=== PATIENT | female | born 1945 | race African-American/Black ===

== ENCOUNTER 2021-08-10 10:22 | Inpatient (IN) ==
[2021-08-10] MEDS ORDERED: methylPREDNISolone SOD SUC 125 MG/2 ML VIAL IV STA (10:37)
[2021-08-10] MEDS ORDERED: ALBUTEROL/IPRATROPIUM 3 ML NEB RESP TX STA (10:37)
[2021-08-10 11:06] LABS: Basophils # 0.1 10*3/uL (0.0-0.2); Basophils % 0.5 % (0.0-0.8); Eosinophils # 0.3 10*3/uL (0.0-0.87); Eosinophils % 1.8 % (0.00-10.9); Hematocrit 39.3 VOL% (35.7-47.0); Hemoglobin 12.3 GM/DL (12.0-16.0); Immature Granulocytes % 1.2 %; Immature Granulocytes Absolute 0.17 #; Lymphocytes # 0.7 10*3/uL (1.4-4.0); Lymphocytes % 4.7 % (21.3-54.2); Mean Corpuscular HGB Conc 31.3 GM/DL (32-36); Mean Corpuscular Volume 73.3 FL (87-102); Mean Platelet Volume 9.6 FL (9.6-12.0); NRBC # 0.02 10*3/uL; Neutrophils % 82.8 % (38.7-73.9); Platelet Count 302 T/CUMM (130-400); Red Blood Count 5.36 MC/CUMM (3.8-5.5); Red Cell Distribution Width 16.4 % (9.3-17.3); White Blood Count 14.5 T/CUMM (4-12)
[2021-08-10] MEDS ORDERED: VANCOMYCIN INJ 1,000 MG in SODIUM CHLORIDE 0.9% 250 ML IV STA (11:19)
[2021-08-10] MEDS ORDERED: CEFEPIME 1,000 MG in SODIUM CHLORIDE 0.9% 100 ML IV STA (11:19)
[2021-08-10 11:21] LABS: Albumin 2.1 G/DL (3.4-5.0); Bilirubin,Total 0.7 MG/DL (0.20-1.00); Calcium 12.5 MG/DL (8.5-10.1); Osmolality,Calculated 278.4 MOS/KG (273-304); Potassium 4.2 MMOL/L (3.5-5.1)
[2021-08-10] MEDS ORDERED: ONDANSETRON 4 MG/2 ML VIAL ONE (11:30)
[2021-08-10] MEDS ORDERED: ONDANSETRON 4 MG/2 ML VIAL IV STA (11:31)
[2021-08-10 11:35] LABS: Polychromasia 1+
[2021-08-10 11:36] LABS: Platelet Estimate Normal; Target Cells 1+
[2021-08-10] MEDS ORDERED: ALBUTEROL 2.5 MG/3 ML NEB RESP TX STA (11:37)
[2021-08-10 13:08] LABS: ABG Base Excess 7.8 MMOL/L (-2.5-2.5); ABG HCO3 31.5 MMOL/L (20-26); ABG Oxygen Saturation 91.8 % (95-100); ABG PCO2 47.8 MM HG (35-48); ABG PH 7.449 (7.35-7.45); ABG PO2 64.4 MM HG (80-95); ABG TCO2 29.4 MMOL/L (23-27)
[2021-08-10] MEDS ORDERED: ONDANSETRON 4 MG/2 ML VIAL IV PRN (13:14)
[2021-08-10] MEDS ORDERED: ACETAMINOPHEN 325 MG TABLET PO PRN (13:14)
[2021-08-10] MEDS: ALBUTEROL/IPRATROPIUM 3 ML NEB RESP TX SCH ×3 (14:55→23:36)
[2021-08-10] MEDS: CEFEPIME 1,000 MG in SODIUM CHLORIDE 0.9% 100 ML IV SCH ×2 (15:10→20:59)
[2021-08-10] MEDS: ENOXAPARIN 40 MG/0.4 ML SYRINGE SUBCUT SCH (15:30)
[2021-08-10 16:31] LABS: Bacteria,Urine Occasional /HPF (Few); Bilirubin,Urine Negative (Negative); Blood, Urine Negative (Negative); Glucose,Urine (UA) Negative (Negative); Ketones,Urine Negative (Negative); Mucus,Urine Occasional /LPF (Occasional); Nitrite,Urine Negative (Negative); Protein,Urine Negative; RBC,Urine 3 /HPF (0-4); Squamous Epithelial Cell,Urine Occasional /HPF (0-10); Urine Appearance CLEAR (Clear); Urine Color Yellow (Yellow); Urine Specific Gravity 1.013 (1.001-1.035); Urine Urobilinogen < 2.0 EU/DL (<2.0)
[2021-08-10] MEDS: SODIUM CHLORIDE 0.45% 1,000 ML IV SCH (16:55)
[2021-08-10] MEDS: DOCUSATE SODIUM 100 MG CAPSULE PO SCH (20:58)
[2021-08-10] MEDS ORDERED: DIGOXIN 0.25 MG TABLET PO SCH (23:30)
[2021-08-11] MEDS: VANCOMYCIN INJ 1,000 MG in SODIUM CHLORIDE 0.9% 250 ML IV SCH ×3 (01:05→23:04)
[2021-08-11] MEDS: CEFEPIME 1,000 MG in SODIUM CHLORIDE 0.9% 100 ML IV SCH ×4 (03:02→21:07)
[2021-08-11] MEDS: ALBUTEROL/IPRATROPIUM 3 ML NEB RESP TX SCH ×6 (03:38→22:57)
[2021-08-11 05:58] LABS: Basophils % 0.1 % (0.0-0.8); Hematocrit 34.7 VOL% (35.7-47.0); Hemoglobin 10.7 GM/DL (12.0-16.0); Immature Granulocytes % 1.4 %; Immature Granulocytes Absolute 0.17 #; Lymphocytes # 0.4 10*3/uL (1.4-4.0); Lymphocytes % 3.2 % (21.3-54.2); Mean Corpuscular HGB Conc 30.8 GM/DL (32-36); Mean Corpuscular Volume 74.3 FL (87-102); Mean Platelet Volume 9.7 FL (9.6-12.0); Monocytes % 6.5 % (1.7-12.7); Neutrophils % 88.8 % (38.7-73.9); Platelet Count 290 T/CUMM (130-400); Red Blood Count 4.67 MC/CUMM (3.8-5.5); Red Cell Distribution Width 16.1 % (9.3-17.3); White Blood Count 12.3 T/CUMM (4-12)
[2021-08-11 06:14] LABS: Calcium 11.7 MG/DL (8.5-10.1); Osmolality,Calculated 276.7 MOS/KG (273-304); Potassium 4.2 MMOL/L (3.5-5.1)
[2021-08-11 07:45] LABS: Eosinophils 1 % (0-10); Lymphocytes 5 % (20-55); Promyelocytes 1 %; Segmented Neutrophils 85 % (50-85); Total Cells Counted 100
[2021-08-11 07:46] LABS: Platelet Estimate Normal
[2021-08-11] MEDS ORDERED: FUROSEMIDE 40 MG/4 ML VIAL IV ONE (10:18)
[2021-08-11] MEDS: DOCUSATE SODIUM 100 MG CAPSULE PO SCH ×2 (10:47→21:08)
[2021-08-11] MEDS: ASPIRIN EC 81 MG TABLET PO SCH (10:48)
[2021-08-11] MEDS: METOPROLOL TARTRATE 25 MG TABLET PO SCH ×2 (10:48→21:09)
[2021-08-11] MEDS: amLODIPine 10 MG TABLET PO SCH ×2 (10:48→21:09)
[2021-08-11] MEDS: DIGOXIN 0.125 MG TABLET PO SCH (10:48)
[2021-08-11] MEDS: PANTOPRAZOLE 40 MG TABLET PO SCH (10:48)
[2021-08-11] MEDS: methylPREDNISolone SOD SUC 40 MG/1 ML VIAL IV SCH ×2 (10:50→21:08)
[2021-08-11] MEDS: SODIUM CHLORIDE 0.45% 1,000 ML IV SCH (12:16)
[2021-08-11] MEDS: ENOXAPARIN 40 MG/0.4 ML SYRINGE SUBCUT SCH (13:56)
[2021-08-12] MEDS: ALBUTEROL/IPRATROPIUM 3 ML NEB RESP TX SCH ×6 (02:46→23:55)
[2021-08-12] MEDS: SODIUM CHLORIDE 0.45% 1,000 ML IV SCH ×2 (03:02→05:41)
[2021-08-12] MEDS: CEFEPIME 1,000 MG in SODIUM CHLORIDE 0.9% 100 ML IV SCH ×4 (03:02→20:47)
[2021-08-12] MEDS: methylPREDNISolone SOD SUC 40 MG/1 ML VIAL IV SCH ×3 (05:08→20:53)
[2021-08-12 06:07] LABS: Basophils % 0.1 % (0.0-0.8); Hemoglobin 10.8 GM/DL (12.0-16.0); Immature Granulocytes % 1.2 %; Immature Granulocytes Absolute 0.14 #; Lymphocytes # 0.3 10*3/uL (1.4-4.0); Lymphocytes % 2.3 % (21.3-54.2); Mean Corpuscular HGB Conc 30.9 GM/DL (32-36); Mean Corpuscular Volume 74.5 FL (87-102); Mean Platelet Volume 9.8 FL (9.6-12.0); Monocytes % 3.3 % (1.7-12.7); Neutrophils % 93.1 % (38.7-73.9); Platelet Count 300 T/CUMM (130-400); Red Cell Distribution Width 15.9 % (9.3-17.3)
[2021-08-12 06:30] LABS: Hypochromia 1+; Lymphocytes 1 % (20-55); Microcytosis 1+; Platelet Estimate Adequate; Segmented Neutrophils 96 % (50-85); Total Cells Counted 100
[2021-08-12 06:36] LABS: Alanine Aminotransferase 64 U/L (13-56); Albumin 1.8 G/DL (3.4-5.0); Alkaline Phosphatase 83 U/L (45-117); Aspartate Amino Transferase 41 U/L (0-37); Bilirubin,Total < 0.39 MG/DL (0.20-1.00); Blood Urea Nitrogen 18 MG/DL (7-18); Calcium 11.4 MG/DL (8.5-10.1); Carbon Dioxide 28 MMOL/L (21-32); Glucose 116 MG/DL (74-106); Osmolality,Calculated 279.5 MOS/KG (273-304); Potassium 4.4 MMOL/L (3.5-5.1); Sodium 139 MMOL/L (136-145); Total Protein 6.6 G/DL (6.4-8.2)
[2021-08-12 06:41] LABS: Estimated Glom Filtration Rate 111 ML/MIN
[2021-08-12] MEDS: METOPROLOL TARTRATE 25 MG TABLET PO SCH ×2 (08:43→20:43)
[2021-08-12] MEDS: DOCUSATE SODIUM 100 MG CAPSULE PO SCH ×2 (08:43→20:43)
[2021-08-12] MEDS: PANTOPRAZOLE 40 MG TABLET PO SCH (08:43)
[2021-08-12] MEDS: ASPIRIN EC 81 MG TABLET PO SCH (08:43)
[2021-08-12] MEDS: amLODIPine 10 MG TABLET PO SCH ×2 (08:44→20:43)
[2021-08-12] MEDS: DIGOXIN 0.125 MG TABLET PO SCH (08:44)
[2021-08-12] MEDS ORDERED: MAGNESIUM HYDROXIDE SUSP 30 ML UDCUP PO ONE (09:48)
[2021-08-12] MEDS: ALTEPLASE 4 MG in SODIUM CHLORIDE 0.9% 80 ML IV SCH ×2 (13:15→13:54)
[2021-08-12] MEDS: ENOXAPARIN 40 MG/0.4 ML SYRINGE SUBCUT SCH (13:15)
[2021-08-12] MEDS ORDERED: PEMBROLIZUMAB 200 MG in SODIUM CHLORIDE 0.9% 50 ML IV ONE (14:00)
[2021-08-12] MEDS: VANCOMYCIN INJ 1,000 MG in SODIUM CHLORIDE 0.9% 250 ML IV SCH ×2 (15:40→23:30)
[2021-08-13] MEDS: CEFEPIME 1,000 MG in SODIUM CHLORIDE 0.9% 100 ML IV SCH ×4 (02:20→21:05)
[2021-08-13] MEDS: ALBUTEROL/IPRATROPIUM 3 ML NEB RESP TX SCH ×6 (03:43→23:58)
[2021-08-13 05:08] LABS: Basophils % 0.1 % (0.0-0.8); Hematocrit 35.8 VOL% (35.7-47.0); Hemoglobin 11.2 GM/DL (12.0-16.0); Immature Granulocytes % 0.7 %; Immature Granulocytes Absolute 0.09 #; Lymphocytes # 0.3 10*3/uL (1.4-4.0); Lymphocytes % 2.4 % (21.3-54.2); Mean Corpuscular HGB Conc 31.3 GM/DL (32-36); Mean Corpuscular Volume 74.1 FL (87-102); Mean Platelet Volume 10.1 FL (9.6-12.0); Monocytes % 5.2 % (1.7-12.7); Neutrophils % 91.6 % (38.7-73.9); Platelet Count 341 T/CUMM (130-400); Red Blood Count 4.83 MC/CUMM (3.8-5.5); Red Cell Distribution Width 16.2 % (9.3-17.3); White Blood Count 13.6 T/CUMM (4-12)
[2021-08-13 05:34] LABS: Hypochromia 1+; Lymphocytes 2 % (20-55); Microcytosis 1+; Platelet Estimate Adequate; Segmented Neutrophils 94 % (50-85); Total Cells Counted 100
[2021-08-13] MEDS: methylPREDNISolone SOD SUC 40 MG/1 ML VIAL IV SCH ×3 (05:50→21:10)
[2021-08-13] MEDS ORDERED: LACTULOSE 20 GM/30 ML UDCUP PO ONE (09:15)
[2021-08-13] MEDS: DOCUSATE SODIUM 100 MG CAPSULE PO SCH ×2 (09:35→21:05)
[2021-08-13] MEDS: METOPROLOL TARTRATE 25 MG TABLET PO SCH ×2 (09:35→21:05)
[2021-08-13] MEDS: amLODIPine 10 MG TABLET PO SCH ×2 (09:35→21:05)
[2021-08-13] MEDS: ASPIRIN EC 81 MG TABLET PO SCH (09:35)
[2021-08-13] MEDS: PANTOPRAZOLE 40 MG TABLET PO SCH (09:35)
[2021-08-13] MEDS: DIGOXIN 0.125 MG TABLET PO SCH (09:36)
[2021-08-13] MEDS: SODIUM CHLORIDE 0.45% 1,000 ML IV SCH (09:51)
[2021-08-13] MEDS ORDERED: MAGNESIUM HYDROXIDE SUSP 30 ML UDCUP PO PRN (09:52)
[2021-08-13] MEDS: ENOXAPARIN 40 MG/0.4 ML SYRINGE SUBCUT SCH (12:42)
[2021-08-13] MEDS: VANCOMYCIN INJ 1,000 MG in SODIUM CHLORIDE 0.9% 250 ML IV SCH ×2 (12:42→23:00)
[2021-08-13] MEDS ORDERED: GLUCAGON 1 MG VIAL IM PRN (16:31)
[2021-08-13] MEDS ORDERED: DEXTROSE 10% 250 ML BAG IV PRN (16:31)
[2021-08-14] MEDS ORDERED: MELATONIN 3 MG TABLET PO ONE (00:10)
[2021-08-14] MEDS: CEFEPIME 1,000 MG in SODIUM CHLORIDE 0.9% 100 ML IV SCH ×4 (02:53→22:06)
[2021-08-14] MEDS: ALBUTEROL/IPRATROPIUM 3 ML NEB RESP TX SCH ×6 (03:40→23:32)
[2021-08-14] MEDS: methylPREDNISolone SOD SUC 40 MG/1 ML VIAL IV SCH ×2 (07:42→12:34)
[2021-08-14] MEDS: amLODIPine 10 MG TABLET PO SCH ×2 (08:29→22:04)
[2021-08-14] MEDS: PANTOPRAZOLE 40 MG TABLET PO SCH (08:30)
[2021-08-14] MEDS: ASPIRIN EC 81 MG TABLET PO SCH (08:30)
[2021-08-14] MEDS: DOCUSATE SODIUM 100 MG CAPSULE PO SCH ×2 (08:31→22:04)
[2021-08-14] MEDS: DIGOXIN 0.125 MG TABLET PO SCH (08:31)
[2021-08-14] MEDS: METOPROLOL TARTRATE 25 MG TABLET PO SCH ×2 (08:39→22:05)
[2021-08-14] MEDS: VANCOMYCIN INJ 1,000 MG in SODIUM CHLORIDE 0.9% 250 ML IV SCH (12:34)
[2021-08-14] MEDS ORDERED: methylPREDNISolone SOD SUC 40 MG/1 ML VIAL IV SCH (13:00)
[2021-08-14] MEDS: ENOXAPARIN 40 MG/0.4 ML SYRINGE SUBCUT SCH (14:47)
[2021-08-14] MEDS ORDERED: FUROSEMIDE 40 MG/4 ML VIAL IV ONE (15:45)
[2021-08-15] MEDS: VANCOMYCIN INJ 1,000 MG in SODIUM CHLORIDE 0.9% 250 ML IV SCH (01:11)
[2021-08-15] MEDS: CEFEPIME 1,000 MG in SODIUM CHLORIDE 0.9% 100 ML IV SCH ×2 (02:16→09:47)
[2021-08-15] MEDS: ALBUTEROL/IPRATROPIUM 3 ML NEB RESP TX SCH ×4 (03:10→15:00)
[2021-08-15] MEDS ORDERED: HEPARIN LOCK FLUSH 500 UNIT/5 ML SYRINGE IV PRN (04:33)
[2021-08-15 06:45] LABS: Basophils % 0.2 % (0.0-0.8); Eosinophils % 0.1 % (0.00-10.9); Hematocrit 41.5 VOL% (35.7-47.0); Hemoglobin 12.9 GM/DL (12.0-16.0); Immature Granulocytes Absolute 0.18 #; Lymphocytes # 0.3 10*3/uL (1.4-4.0); Lymphocytes % 1.7 % (21.3-54.2); Mean Corpuscular HGB Conc 31.1 GM/DL (32-36); Mean Platelet Volume 10.6 FL (9.6-12.0); Monocytes % 5.2 % (1.7-12.7); Neutrophils % 91.8 % (38.7-73.9); Platelet Count 319 T/CUMM (130-400); Red Blood Count 5.61 MC/CUMM (3.8-5.5); Red Cell Distribution Width 17.9 % (9.3-17.3); White Blood Count 17.7 T/CUMM (4-12)
[2021-08-15 06:57] LABS: Calcium 12.1 MG/DL (8.5-10.1); Osmolality,Calculated 281.7 MOS/KG (273-304); Potassium 3.8 MMOL/L (3.5-5.1)
[2021-08-15 07:19] LABS: Hypochromia 2+; Lymphocytes 1 % (20-55); Segmented Neutrophils 93 % (50-85); Total Cells Counted 100
[2021-08-15 07:20] LABS: Microcytosis 1+; Ovalocytes Few; Platelet Estimate Normal; Target Cells Few
[2021-08-15] MEDS: DOCUSATE SODIUM 100 MG CAPSULE PO SCH (09:46)
[2021-08-15] MEDS: PANTOPRAZOLE 40 MG TABLET PO SCH (09:46)
[2021-08-15] MEDS: ASPIRIN EC 81 MG TABLET PO SCH (09:46)
[2021-08-15] MEDS: DIGOXIN 0.125 MG TABLET PO SCH (09:47)
[2021-08-15] MEDS: METOPROLOL TARTRATE 25 MG TABLET PO SCH (09:47)
[2021-08-15] MEDS: amLODIPine 10 MG TABLET PO SCH (09:47)
[2021-08-15] MEDS ORDERED: predniSONE 20 MG TABLET PO SCH (10:30)
[2021-08-15 12:16] VITALS: BP 165/81
[2021-08-17] MEDS ORDERED: DIGOXIN 0.25 MG TABLET PO SCH (09:00)
== END 2021-08-15 15:35 | disposition home health service (06) | DRG 180 ==
LOC: EDBD 10:22 → N.ED 10:22 → EDUNIT# 10:22 → N.EDINP 13:14 → N.TELES 16:10
PROVIDERS: ADMIT Family Medicine; ATTEND Family Medicine

== ENCOUNTER 2021-08-23 12:53 | Inpatient (IN) ==
[2021-08-23 13:31] LABS: Basophils % 0.1 % (0.0-0.8); Hematocrit 42.8 VOL% (35.7-47.0); Hemoglobin 13.8 GM/DL (12.0-16.0); Immature Granulocytes % 1.2 %; Immature Granulocytes Absolute 0.35 #; Lymphocytes # 0.5 10*3/uL (1.4-4.0); Lymphocytes % 1.6 % (21.3-54.2); Mean Corpuscular HGB Conc 32.2 GM/DL (32-36); Mean Corpuscular Volume 72.8 FL (87-102); Mean Platelet Volume 9.7 FL (9.6-12.0); Monocytes % 4.7 % (1.7-12.7); Neutrophils % 92.4 % (38.7-73.9); Platelet Count 252 T/CUMM (130-400); Red Blood Count 5.88 MC/CUMM (3.8-5.5); Red Cell Distribution Width 17.7 % (9.3-17.3); White Blood Count 29.3 T/CUMM (4-12)
[2021-08-23] MEDS ORDERED: cefTRIAXone 2,000 MG in SODIUM CHLORIDE 0.9% 100 ML IV ONE (13:51)
[2021-08-23 13:54] LABS: Albumin 2.4 G/DL (3.4-5.0); Bilirubin,Total 0.6 MG/DL (0.20-1.00); Osmolality,Calculated 280.7 MOS/KG (273-304); Potassium 4.5 MMOL/L (3.5-5.1); Total Protein 6.9 G/DL (6.4-8.2)
[2021-08-23 13:58] LABS: Calcium 14.2 MG/DL (8.5-10.1)
[2021-08-23 14:24] LABS: Lymphocytes 2 % (20-55); Ovalocytes Few; Platelet Estimate Normal; Segmented Neutrophils 95 % (50-85); Target Cells Few; Total Cells Counted 100
[2021-08-23 14:25] LABS: Hypochromia 2+; Microcytosis 2+; Polychromasia Slight
[2021-08-23] MEDS ORDERED: MORPHINE 2 MG/1 ML SYRINGE IV PRN (15:39)
[2021-08-23] MEDS ORDERED: ONDANSETRON 4 MG/2 ML VIAL IV PRN (15:39)
[2021-08-23 15:53] LABS: INR 1.3; PT Patient Result 14.3 SECS (10.5-12.0); Partial Thromboplastin Time 24.8 SECS (23.8-32.1)
[2021-08-23] MEDS: SODIUM CHLORIDE 0.45% 1,000 ML IV SCH (16:10)
[2021-08-23 18:15] LABS: Bilirubin,Urine Negative (Negative); Blood, Urine Negative (Negative); Glucose,Urine (UA) Negative (Negative); Ketones,Urine Negative (Negative); Mucus,Urine Occasional /LPF (Occasional); Nitrite,Urine Negative (Negative); Protein,Urine Negative; RBC,Urine 1 /HPF (0-4); Squamous Epithelial Cell,Urine Occasional /HPF (0-10); Urine Appearance CLEAR (Clear); Urine Color Yellow (Yellow); Urine Specific Gravity 1.014 (1.001-1.035); Urine Urobilinogen < 2.0 EU/DL (<2.0)
[2021-08-23] MEDS ORDERED: FUROSEMIDE 20 MG/2 ML VIAL IV ONE (18:22)
[2021-08-23] MEDS: ENOXAPARIN 30 MG/0.3 ML SYRINGE SUBCUT SCH (20:25)
[2021-08-23] MEDS: DOCUSATE SODIUM 100 MG CAPSULE PO SCH (20:25)
[2021-08-23] MEDS ORDERED: MAGNESIUM HYDROXIDE SUSP 30 ML UDCUP PO PRN (20:51)
[2021-08-23] MEDS: METOPROLOL TARTRATE 25 MG TABLET PO SCH (21:29)
[2021-08-23] MEDS: methylPREDNISolone SOD SUC 40 MG/1 ML VIAL IV SCH (21:32)
[2021-08-24] MEDS: ALBUTEROL 1.25 MG/3 ML NEB RESP TX SCH ×4 (00:40→19:10)
[2021-08-24 01:06] LABS: Basophils # 0.1 10*3/uL (0.0-0.2); Basophils % 0.2 % (0.0-0.8); Hematocrit 43.1 VOL% (35.7-47.0); Hemoglobin 13.7 GM/DL (12.0-16.0); Immature Granulocytes % 1.4 %; Immature Granulocytes Absolute 0.41 #; Lymphocytes # 0.3 10*3/uL (1.4-4.0); Lymphocytes % 0.9 % (21.3-54.2); Mean Corpuscular HGB Conc 31.8 GM/DL (32-36); Mean Corpuscular Volume 73.3 FL (87-102); Monocytes % 1.9 % (1.7-12.7); Neutrophils % 95.6 % (38.7-73.9); Platelet Count 226 T/CUMM (130-400); Red Blood Count 5.88 MC/CUMM (3.8-5.5); Red Cell Distribution Width 17.8 % (9.3-17.3); White Blood Count 29.6 T/CUMM (4-12)
[2021-08-24 01:25] LABS: Band Neutrophils 2 % (0-10); Lymphocytes 1 % (20-55); Platelet Estimate Normal; Segmented Neutrophils 94 % (50-85); Total Cells Counted 100
[2021-08-24 01:26] LABS: Microcytosis Slight; Osmolality,Calculated 279.7 MOS/KG (273-304); Potassium 4.1 MMOL/L (3.5-5.1)
[2021-08-24 01:29] LABS: Calcium 14.8 MG/DL (8.5-10.1)
[2021-08-24] MEDS: SODIUM CHLORIDE 0.45% 1,000 ML IV SCH ×2 (04:58→14:11)
[2021-08-24] MEDS ORDERED: ZOLEDRONIC ACID 4 MG/100 ML PREMIX IV ONE (08:00)
[2021-08-24] MEDS: METOPROLOL TARTRATE 25 MG TABLET PO SCH ×2 (10:19→20:55)
[2021-08-24] MEDS: amLODIPine 10 MG TABLET PO SCH (10:19)
[2021-08-24] MEDS: ASPIRIN EC 81 MG TABLET PO SCH (10:20)
[2021-08-24] MEDS: PANTOPRAZOLE 40 MG TABLET PO SCH (10:20)
[2021-08-24] MEDS: MEGESTROL 400 MG/10 ML UDCUP PO SCH ×2 (10:20→20:56)
[2021-08-24] MEDS: DOCUSATE SODIUM 100 MG CAPSULE PO SCH ×2 (10:20→20:55)
[2021-08-24] MEDS: methylPREDNISolone SOD SUC 40 MG/1 ML VIAL IV SCH ×2 (10:21→21:03)
[2021-08-24] MEDS ORDERED: DIGOXIN 0.25 MG TABLET PO SCH (13:00)
[2021-08-24] MEDS: ENOXAPARIN 30 MG/0.3 ML SYRINGE SUBCUT SCH (16:59)
[2021-08-24] MEDS: cefTRIAXone 1,000 MG in SODIUM CHLORIDE 0.9% 100 ML IV SCH (16:59)
[2021-08-25] MEDS: ALBUTEROL 1.25 MG/3 ML NEB RESP TX SCH ×4 (01:05→19:37)
[2021-08-25] MEDS: SODIUM CHLORIDE 0.45% 1,000 ML IV SCH ×2 (03:25→14:21)
[2021-08-25 05:17] LABS: Basophils % 0.1 % (0.0-0.8); Hematocrit 41.2 VOL% (35.7-47.0); Hemoglobin 12.7 GM/DL (12.0-16.0); Immature Granulocytes % 1.3 %; Immature Granulocytes Absolute 0.29 #; Lymphocytes # 0.3 10*3/uL (1.4-4.0); Lymphocytes % 1.5 % (21.3-54.2); Mean Corpuscular HGB Conc 30.8 GM/DL (32-36); Mean Corpuscular Volume 74.5 FL (87-102); Mean Platelet Volume 10.4 FL (9.6-12.0); Monocytes % 3.3 % (1.7-12.7); Neutrophils % 93.8 % (38.7-73.9); Platelet Count 209 T/CUMM (130-400); Red Blood Count 5.53 MC/CUMM (3.8-5.5); Red Cell Distribution Width 17.2 % (9.3-17.3); White Blood Count 21.9 T/CUMM (4-12)
[2021-08-25 05:33] LABS: Calcium 12.9 MG/DL (8.5-10.1); Potassium 4.2 MMOL/L (3.5-5.1)
[2021-08-25 05:40] LABS: Anisocytosis 1+; Band Neutrophils 9 % (0-10); Lymphocytes 1 % (20-55); Platelet Estimate Normal; Segmented Neutrophils 89 % (50-85); Target Cells 1+; Total Cells Counted 100
[2021-08-25 05:41] LABS: Hypochromia Slight; Macrocytosis 1+; Ovalocytes Few; Tear Drop Cells Few
[2021-08-25] MEDS: MEGESTROL 400 MG/10 ML UDCUP PO SCH ×2 (09:10→20:41)
[2021-08-25] MEDS: METOPROLOL TARTRATE 25 MG TABLET PO SCH ×2 (09:10→20:41)
[2021-08-25] MEDS: amLODIPine 10 MG TABLET PO SCH (09:10)
[2021-08-25] MEDS: ASPIRIN EC 81 MG TABLET PO SCH (09:10)
[2021-08-25] MEDS: PANTOPRAZOLE 40 MG TABLET PO SCH (09:10)
[2021-08-25] MEDS: DOCUSATE SODIUM 100 MG CAPSULE PO SCH ×2 (09:10→20:41)
[2021-08-25] MEDS: methylPREDNISolone SOD SUC 40 MG/1 ML VIAL IV SCH ×2 (09:11→21:54)
[2021-08-25] MEDS: ACETAMINOPHEN 325 MG TABLET PO PRN (09:21)
[2021-08-25] MEDS: DIGOXIN 0.125 MG TABLET PO SCH (12:48)
[2021-08-25] MEDS: ENOXAPARIN 30 MG/0.3 ML SYRINGE SUBCUT SCH (16:44)
[2021-08-25] MEDS: cefTRIAXone 1,000 MG in SODIUM CHLORIDE 0.9% 100 ML IV SCH (16:44)
[2021-08-26] MEDS: SODIUM CHLORIDE 0.45% 1,000 ML IV SCH ×3 (00:43→21:39)
[2021-08-26] MEDS: ALBUTEROL 1.25 MG/3 ML NEB RESP TX SCH ×4 (01:21→20:21)
[2021-08-26 05:21] LABS: Calcium 10.9 MG/DL (8.5-10.1); Osmolality,Calculated 272.1 MOS/KG (273-304); Potassium 4.7 MMOL/L (3.5-5.1)
[2021-08-26 05:53] LABS: Basophils % 0.1 % (0.0-0.8); Hematocrit 40.6 VOL% (35.7-47.0); Hemoglobin 12.5 GM/DL (12.0-16.0); Immature Granulocytes % 1.1 %; Immature Granulocytes Absolute 0.19 #; Lymphocytes # 0.3 10*3/uL (1.4-4.0); Lymphocytes % 1.5 % (21.3-54.2); Mean Corpuscular HGB Conc 30.8 GM/DL (32-36); Mean Corpuscular Volume 75.2 FL (87-102); Mean Platelet Volume 9.4 FL (9.6-12.0); Monocytes % 3.4 % (1.7-12.7); Neutrophils % 93.9 % (38.7-73.9); Platelet Count 191 T/CUMM (130-400); Red Cell Distribution Width 17.1 % (9.3-17.3); White Blood Count 17.8 T/CUMM (4-12)
[2021-08-26 06:21] LABS: Hypochromia 2+; Lymphocytes 2 % (20-55); Microcytosis 1+; Ovalocytes Few; Segmented Neutrophils 97 % (50-85); Target Cells Slight; Total Cells Counted 100
[2021-08-26 06:23] LABS: Platelet Estimate Adequate
[2021-08-26] MEDS: ASPIRIN EC 81 MG TABLET PO SCH (08:46)
[2021-08-26] MEDS: DOCUSATE SODIUM 100 MG CAPSULE PO SCH ×2 (08:47→20:27)
[2021-08-26] MEDS: METOPROLOL TARTRATE 25 MG TABLET PO SCH ×2 (08:48→20:26)
[2021-08-26] MEDS: MEGESTROL 400 MG/10 ML UDCUP PO SCH ×2 (08:50→20:26)
[2021-08-26] MEDS: amLODIPine 10 MG TABLET PO SCH (08:51)
[2021-08-26] MEDS: PANTOPRAZOLE 40 MG TABLET PO SCH (08:52)
[2021-08-26] MEDS ORDERED: LACTULOSE 20 GM/30 ML UDCUP PO ONE (08:59)
[2021-08-26] MEDS: methylPREDNISolone SOD SUC 40 MG/1 ML VIAL IV SCH ×2 (10:10→21:02)
[2021-08-26] MEDS: AZITHROMYCIN INJ 250 MG in SODIUM CHLORIDE 0.9% 250 ML IV SCH (10:22)
[2021-08-26] MEDS: DIGOXIN 0.125 MG TABLET PO SCH (12:07)
[2021-08-26] MEDS: cefTRIAXone 1,000 MG in SODIUM CHLORIDE 0.9% 100 ML IV SCH (16:56)
[2021-08-26] MEDS: ENOXAPARIN 30 MG/0.3 ML SYRINGE SUBCUT SCH (16:57)
[2021-08-27] MEDS: ALBUTEROL 1.25 MG/3 ML NEB RESP TX SCH ×4 (00:35→19:27)
[2021-08-27 07:49] LABS: Basophils % 0.1 % (0.0-0.8); Hematocrit 38.3 VOL% (35.7-47.0); Hemoglobin 12.1 GM/DL (12.0-16.0); Immature Granulocytes % 0.9 %; Immature Granulocytes Absolute 0.13 #; Lymphocytes # 0.3 10*3/uL (1.4-4.0); Lymphocytes % 2.2 % (21.3-54.2); Mean Corpuscular HGB Conc 31.6 GM/DL (32-36); Mean Corpuscular Volume 74.5 FL (87-102); Mean Platelet Volume 9.9 FL (9.6-12.0); Monocytes % 4.3 % (1.7-12.7); Neutrophils % 92.5 % (38.7-73.9); Platelet Count 188 T/CUMM (130-400); Red Blood Count 5.14 MC/CUMM (3.8-5.5); Red Cell Distribution Width 16.9 % (9.3-17.3); White Blood Count 15.1 T/CUMM (4-12)
[2021-08-27 08:07] LABS: Calcium 10.3 MG/DL (8.5-10.1); Osmolality,Calculated 274.8 MOS/KG (273-304); Potassium 4.2 MMOL/L (3.5-5.1)
[2021-08-27 08:10] LABS: Lymphocytes 2 % (20-55); Platelet Estimate Adequate; Segmented Neutrophils 90 % (50-85); Total Cells Counted 100
[2021-08-27 08:11] LABS: Hypochromia Slight; Microcytosis Slight
[2021-08-27] MEDS ORDERED: LACTULOSE 20 GM/30 ML UDCUP PO PRN (09:19)
[2021-08-27] MEDS: SODIUM CHLORIDE 0.45% 1,000 ML IV SCH ×2 (09:43→21:16)
[2021-08-27] MEDS: methylPREDNISolone SOD SUC 40 MG/1 ML VIAL IV SCH ×2 (09:48→21:14)
[2021-08-27] MEDS: METOPROLOL TARTRATE 25 MG TABLET PO SCH ×2 (09:48→20:34)
[2021-08-27] MEDS: DOCUSATE SODIUM 100 MG CAPSULE PO SCH ×2 (09:48→20:34)
[2021-08-27] MEDS: ASPIRIN EC 81 MG TABLET PO SCH (09:49)
[2021-08-27] MEDS: MEGESTROL 400 MG/10 ML UDCUP PO SCH ×2 (09:50→21:13)
[2021-08-27] MEDS: AZITHROMYCIN INJ 250 MG in SODIUM CHLORIDE 0.9% 250 ML IV SCH (09:50)
[2021-08-27] MEDS: PANTOPRAZOLE 40 MG TABLET PO SCH (09:50)
[2021-08-27] MEDS: amLODIPine 10 MG TABLET PO SCH (09:50)
[2021-08-27] MEDS: DIGOXIN 0.125 MG TABLET PO SCH (13:53)
[2021-08-27] MEDS: ENOXAPARIN 30 MG/0.3 ML SYRINGE SUBCUT SCH (16:49)
[2021-08-27] MEDS: cefTRIAXone 1,000 MG in SODIUM CHLORIDE 0.9% 100 ML IV SCH (16:49)
[2021-08-27] MEDS: DILTIAZEM INJ 100 MG in SODIUM CHLORIDE 0.9% 100 ML IV SCH (20:00)
[2021-08-28] MEDS: ALBUTEROL 1.25 MG/3 ML NEB RESP TX SCH ×4 (00:32→19:17)
[2021-08-28] MEDS: SODIUM CHLORIDE 0.45% 1,000 ML IV SCH ×3 (05:23→21:20)
[2021-08-28] MEDS ORDERED: METOPROLOL TARTRATE 5 MG/5 ML VIAL IV ONE (08:33)
[2021-08-28] MEDS ORDERED: LORazepam 2 MG/1 ML VIAL IV PRN ×2 (08:35→14:12)
[2021-08-28 09:08] LABS: Basophils % 0.1 % (0.0-0.8); Eosinophils % 0.1 % (0.00-10.9); Hematocrit 42.2 VOL% (35.7-47.0); Hemoglobin 13.5 GM/DL (12.0-16.0); Immature Granulocytes % 0.9 %; Lymphocytes # 0.6 10*3/uL (1.4-4.0); Lymphocytes % 2.6 % (21.3-54.2); Mean Corpuscular Volume 72.8 FL (87-102); Mean Platelet Volume 9.9 FL (9.6-12.0); Monocytes % 4.5 % (1.7-12.7); Neutrophils % 91.8 % (38.7-73.9); Platelet Count 187 T/CUMM (130-400); Red Cell Distribution Width 17.8 % (9.3-17.3)
[2021-08-28 09:17] LABS: Osmolality,Calculated 275.8 MOS/KG (273-304); Potassium 3.5 MMOL/L (3.5-5.1)
[2021-08-28 09:25] LABS: Hypochromia Slight; Lymphocytes 1 % (20-55); Microcytosis Slight; Platelet Estimate Adequate; Segmented Neutrophils 95 % (50-85); Total Cells Counted 100
[2021-08-28] MEDS: methylPREDNISolone SOD SUC 40 MG/1 ML VIAL IV SCH ×2 (09:45→21:19)
[2021-08-28] MEDS: MORPHINE 4 MG/1 ML VIAL IV PRN ×2 (09:47→23:26)
[2021-08-28] MEDS: DOCUSATE SODIUM 100 MG CAPSULE PO SCH ×3 (09:49→20:24)
[2021-08-28] MEDS: ASPIRIN EC 81 MG TABLET PO SCH (09:49)
[2021-08-28] MEDS: amLODIPine 10 MG TABLET PO SCH (09:49)
[2021-08-28] MEDS: MEGESTROL 400 MG/10 ML UDCUP PO SCH ×3 (09:50→20:25)
[2021-08-28] MEDS: METOPROLOL TARTRATE 25 MG TABLET PO SCH ×3 (09:50→20:24)
[2021-08-28] MEDS: PANTOPRAZOLE 40 MG TABLET PO SCH (09:50)
[2021-08-28] MEDS: AZITHROMYCIN INJ 250 MG in SODIUM CHLORIDE 0.9% 250 ML IV SCH (11:36)
[2021-08-28] MEDS: ACETAMINOPHEN 325 MG TABLET PO PRN (11:37)
[2021-08-28] MEDS ORDERED: DIGOXIN 0.5 MG/2 ML AMP IV ONE (14:09)
[2021-08-28] MEDS: DIGOXIN 0.125 MG TABLET PO SCH (14:16)
[2021-08-28] MEDS ORDERED: ZINC OXIDE 16% PASTE 57 GM TUBE TOP SCH (15:00)
[2021-08-28] MEDS: cefTRIAXone 1,000 MG in SODIUM CHLORIDE 0.9% 100 ML IV SCH (15:30)
[2021-08-28] MEDS: ENOXAPARIN 30 MG/0.3 ML SYRINGE SUBCUT SCH (17:07)
[2021-08-28] MEDS: DILTIAZEM INJ 100 MG in SODIUM CHLORIDE 0.9% 100 ML IV SCH (20:16)
[2021-08-28] MEDS: ZINC OXIDE 16% PASTE 57 GM TUBE TOP SCH (20:23)
[2021-08-29] MEDS: ALBUTEROL 1.25 MG/3 ML NEB RESP TX SCH ×3 (00:42→13:15)
[2021-08-29] MEDS: DILTIAZEM INJ 100 MG in SODIUM CHLORIDE 0.9% 100 ML IV SCH (02:59)
[2021-08-29] MEDS: SODIUM CHLORIDE 0.45% 1,000 ML IV SCH ×2 (06:48→14:43)
[2021-08-29] MEDS ORDERED: MAGNESIUM SULF RIDER 1 GM/100 ML PREMIX IV ONE (07:30)
[2021-08-29] MEDS: METOPROLOL TARTRATE 25 MG TABLET PO SCH (08:50)
[2021-08-29] MEDS: PANTOPRAZOLE 40 MG TABLET PO SCH (08:50)
[2021-08-29] MEDS: ASPIRIN EC 81 MG TABLET PO SCH (08:50)
[2021-08-29] MEDS: MEGESTROL 400 MG/10 ML UDCUP PO SCH (08:51)
[2021-08-29] MEDS: DOCUSATE SODIUM 100 MG CAPSULE PO SCH (08:51)
[2021-08-29] MEDS: amLODIPine 10 MG TABLET PO SCH (08:51)
[2021-08-29 08:52] LABS: Basophils % 0.1 % (0.0-0.8); Hemoglobin 13.2 GM/DL (12.0-16.0); Immature Granulocytes % 1.2 %; Immature Granulocytes Absolute 0.25 #; Lymphocytes # 0.5 10*3/uL (1.4-4.0); Lymphocytes % 2.4 % (21.3-54.2); Mean Corpuscular HGB Conc 32.2 GM/DL (32-36); Mean Corpuscular Volume 73.3 FL (87-102); Mean Platelet Volume 9.9 FL (9.6-12.0); Monocytes % 5.3 % (1.7-12.7); Platelet Count 198 T/CUMM (130-400); Red Blood Count 5.59 MC/CUMM (3.8-5.5); Red Cell Distribution Width 17.7 % (9.3-17.3); White Blood Count 20.3 T/CUMM (4-12)
[2021-08-29 09:12] LABS: Band Neutrophils 1 % (0-10); Lymphocytes 2 % (20-55); Segmented Neutrophils 85 % (50-85); Total Cells Counted 100
[2021-08-29 09:13] LABS: Hypochromia 1+; Microcytosis 1+
[2021-08-29 09:14] LABS: Ovalocytes Slight
[2021-08-29 09:15] LABS: Platelet Estimate Adequate
[2021-08-29 09:23] LABS: Bilirubin,Total 0.4 MG/DL (0.20-1.00); Calcium 9.3 MG/DL (8.5-10.1); Osmolality,Calculated 278.5 MOS/KG (273-304); Potassium 3.5 MMOL/L (3.5-5.1); Thyroid Stimulating Hormone 0.43 uIU/ml (0.358-3.74); Total Protein 6.5 G/DL (6.4-8.2)
[2021-08-29] MEDS: methylPREDNISolone SOD SUC 40 MG/1 ML VIAL IV SCH (09:24)
[2021-08-29] MEDS: ZINC OXIDE 16% PASTE 57 GM TUBE TOP SCH ×2 (09:24→20:25)
[2021-08-29] MEDS: MORPHINE 4 MG/1 ML VIAL IV PRN ×2 (11:28→20:24)
[2021-08-29] MEDS: AZITHROMYCIN INJ 250 MG in SODIUM CHLORIDE 0.9% 250 ML IV SCH (12:15)
[2021-08-29] MEDS ORDERED: POTASSIUM CHLORIDE RIDER 10 MEQ/100 ML PREMIX IV ONE (13:28)
[2021-08-29] MEDS: DIGOXIN 0.125 MG TABLET PO SCH (13:29)
[2021-08-29] MEDS ORDERED: LORazepam 2 MG/1 ML VIAL IV PRN ×3 (14:44→22:53)
[2021-08-29] MEDS: ENOXAPARIN 30 MG/0.3 ML SYRINGE SUBCUT SCH (18:45)
[2021-08-30] MEDS: MORPHINE 4 MG/1 ML VIAL IV PRN ×2 (00:26→05:00)
[2021-08-30] MEDS: SODIUM CHLORIDE 0.45% 1,000 ML IV SCH (04:08)
[2021-08-30] MEDS: LORazepam 2 MG/1 ML VIAL IV SCH ×9 (07:31→23:58)
[2021-08-30] MEDS: HYDROmorphone 2 MG/1 ML VIAL IV SCH ×8 (10:04→23:58)
[2021-08-30] MEDS: ZINC OXIDE 16% PASTE 57 GM TUBE TOP SCH ×2 (10:37→20:54)
[2021-08-30 21:23] VITALS: BP 168/75
[2021-08-31] MEDS: LORazepam 2 MG/1 ML VIAL IV SCH ×3 (01:23→05:32)
[2021-08-31] MEDS: HYDROmorphone 2 MG/1 ML VIAL IV SCH ×3 (01:23→05:33)
== END 2021-08-31 06:34 | disposition expired | DRG 193 ==
LOC: N.ED 12:53 → N.TELES 15:39
PROVIDERS: ADMIT Family Medicine; ATTEND Family Medicine